=== PATIENT | male | born 1975 | race Two or more races ===

== ENCOUNTER → 2017-12-22 | Outpatient (CLI) | payer BC ==
[2017-12-22 12:08] LABS: Eosinophils # (auto) 0.3 uL; Hemoglobin 18.3 g/dL (13.5-17.5); Lymphocytes # (auto) 1.5 uL; Monocytes # (auto) 0.4 uL; Neutrophils # (auto) 2.8 uL; Platelet Count (auto) 131 10^3/uL (140-450)
[2017-12-22 12:11] LABS: Basophils # (auto) 0 uL; Basophils % (auto) 0.9 % (0.0-2.0); Hematocrit 52.7 % (41.0-53.0); Lymphocytes % (auto) 29.5 % (10.0-50.0); Mean Corpuscular Hemoglobin 32.8 pg (28.0-32.0); Mean Corpuscular Hgb Conc. 34.8 g/dL (32.0-36.0); Mean Corpuscular Volume 94.3 fL (80.0-100.0); Monocytes % (auto) 7.7 % (0.0-12.0); Neutrophils % (auto) 55.9 % (37.0-80.0); Nucleated Red Blood Cells % 0.1 %; Red Blood Cells 5.58 10^6/uL (4.5-5.90); Red Cell Distribution Width 12.8 % (11.8-14.3)
[2017-12-22 12:36] LABS: Free T4 (Free Thyroxine) 1.04 ng/dL (0.89-1.76); Prostate Specific Antigen 0.32 ng/mL (0.0-4.0)
[2017-12-22 12:40] LABS: Alanine Aminotransferase 51 U/L (16-61); Albumin 3.9 g/dL (3.4-5.0); Alkaline Phosphatase 122 U/L (45-117); Anion Gap 7 (5-15); Aspartate Aminotransferase 30 U/L (15-37); BUN/Creatinine Ratio 11.5; Bilirubin, Direct 0.2 mg/dL (0-0.2); Bilirubin, Total 0.8 mg/dL (0.2-1.0); Blood Urea Nitrogen 12 mg/dL (7-18); Carbon Dioxide 26 mmol/L (21-32); Chloride 103 mmol/L (98-107); Cholesterol 271 mg/dL (< 200); GFR African American 102 mL/min; GFR Non-African American 84 mL/min; Glucose 102 mg/dL (74-106); HDL Cholesterol 38 mg/dL (40-59); Potassium 4.2 mmol/L (3.5-5.1); Sodium 136 mmol/L (136-145); Total Protein 8.2 g/dL (6.4-8.2); Triglycerides 669 mg/dL (< 150)
== END | disposition home or self-care (01) ==
LOC: LAB 12-20 15:12
PROVIDERS: ATTEND Internal Medicine Cardiovascular Disease
DX: Z00.01 Encounter for general adult medical examination with abnormal findings (principal); E03.9 Hypothyroidism, unspecified; E55.9 Vitamin D deficiency, unspecified; C61 Malignant neoplasm of prostate; E11.9 Type 2 diabetes mellitus without complications; E29.1 Testicular hypofunction
CPT/HCPCS: 36415; 80048; 80061; 80076; 82306; 83036; 84153; 84403; 84439; 84443; 85025